=== PATIENT | male | born 1945 | race Caucasian/White ===

== ENCOUNTER 2020-04-23 04:16 | Emergency (ER) | payer MEDICARE, OTHER ==
[~2020-04-23] VITALS: Ht 175.3 cm; Wt 90.7 kg
[~2020-04-23 04:16] MED LIST: ALBU3IS INH; ALBU90OI INH; ALBU90OI6 INH; ALPR.5 PO; AMOX250 PO; ANTACID; Alavert D-12 A1 EACH PO; Aspirin EC81 MG PO; BENZ100A PO; DULERA 100 MCG/13 GM INH; GABA300 PO; HYDACE10B PO; HYDHCL25 PO; LEVO750 PO; MAGNESIUM OXID500 MG PO; MONT5TCH PO; NAPR500 PO; PRED20 PO; RANI150 PO; ROPI2 PO; TADA10TA PO; TIOT18 INH; TIZANIDINE HCL4 MG PO; Tylenol #3 El12.5 ML PO; Ventolin Soln3 ML INH; Vitamin B-121000 MCG PO; XYZAL5 MG PO
[2020-04-23] MEDS ORDERED: NITROGLYCERIN0.4 M3 SL (04:31)
[2020-04-23] MEDS ORDERED: Diclofenac Pota50 MG PO (04:32)
[2020-04-23 04:58] LABS: BASOPHILS ABSOLUTE AUTO 0.07 K/mm3 (0.00-0.23); BASOPHILS PERCENT AUTO 1 % (0-2); EOSINOPHILS ABSOLUTE AUTO 0.31 K/mm3 (0.00-0.68); EOSINOPHILS PERCENT AUTO 3 % (0-6); Hematocrit 47.6 % (37.0-53.0); Hemoglobin 15.2 g/dL (13.5-17.5); IMMATURE GRAN ABSOLUTE AUTO 0.07 K/mm3 (0.00-0.10); IMMATURE GRAN PERCENT AUTO 1 % (0-1); LYMPHOCYTES PERCENT AUTO 19 % (21-46); MONOCYTES ABSOLUTE AUTO 1.33 K/mm3 (0.16-1.47); MONOCYTES PERCENT AUTO 11 % (4-13); Mean Corpuscular HGB 29.9 pg (26.0-34.0); Mean Corpuscular HGB Conc 31.9 g/dL (31.5-36.5); Mean Corpuscular Volume 94 fL (80-100); Mean Platelet Volume 11.5 fL (9.1-12.4); NEUTROPHILS ABSOLUTE AUTO 8.21 K/mm3 (1.96-9.15); NEUTROPHILS PERCENT AUTO 67 % (41-73); Platelet Count 237 K/mm3 (150-400); RDW Coefficient Variation 13.5 % (11.7-14.2); RDW Standard Deviation 46.9 fL (35.1-46.3); Red Blood Cell Count 5.09 M/mm3 (4.30-5.90); White Blood Cell Count 12.29 K/mm3 (4.00-11.30)
[2020-04-23 05:12] LABS: Alanine Aminotransfer (ALT/SGP 33 U/L (12-78); Albumin, Blood 3.1 g/dL (3.4-5.0); Albumin/Globulin Ratio 0.9 (0.8-1.8); Alk Phos 166 U/L (50-136); Anion Gap 6 mmol/L (6-16); Aspartate Aminotrans (AST/SGOT 16 U/L (12-37); Bilirubin, Total 0.5 mg/dL (0.1-1.0); Blood Urea Nitrogen 22 mg/dL (8-24); Bun/Creatinine Ratio 27.2 (12.0-20.0); CO2, Blood 26 mmol/L (21-32); Calcium, Blood 8.7 mg/dL (8.5-10.1); Chloride, Blood 113 mmol/L (98-108); Creatinine, Blood 0.81 mg/dL (0.60-1.20); Globulin, Blood 3.5 g/dL (2.2-4.0); Glomerular Filtration Rate >60 (60-); Glucose, Blood 111 mg/dL (70-99); Potassium, Blood 3.8 mmol/L (3.5-5.5); Sodium, Blood 145 mmol/L (136-145); Total Protein, Blood 6.6 g/dL (6.4-8.2); Troponin I <0.015 ng/mL (0.000-0.040)
[2020-04-23 07:57] LABS: Magnesium, Blood 2.6 mg/dL (1.6-2.4); Troponin I <0.015 ng/mL (0.000-0.040)
== END 2020-04-23 10:10 | disposition left against medical advice (07) ==
LOC: ER 04:16
PROVIDERS: Emergency Medicine
DX: R07.89 Other chest pain (principal); Z88.8 Allergy status to other drugs, medicaments and biological substances; Z79.899 Other long term (current) drug therapy
CPT/HCPCS: 36415; 71046; 80053; 83735; 84484; 85025; 93005; 93010; 94644; 99285-25